=== PATIENT | male | born 1935 | race Caucasian/White ===

== ENCOUNTER 2022-10-26 14:30 | Emergency (ER) | payer OTHER ==
[~2022-10-26] VITALS: Ht 160 cm; Wt 65.8 kg
[2022-10-26 15:11] VITALS: BP_SYST 143
[2022-10-26] MEDS ORDERED: KETOROLAC TROMETHAMINE 30 MG VIAL IM ONE (18:15)
[2022-10-26] MEDS ORDERED: DICL20GE TP (18:24)
[2022-10-26] MEDS ORDERED: IBUP-1969 PO (18:24)
[2022-10-26 18:53] VITALS: BP_SYST 134
== END 2022-10-26 18:53 | disposition home or self-care (01) ==
LOC: SED 14:30
DX: S70.02XA Contusion of left hip, initial encounter (principal); Z79.899 Other long term (current) drug therapy; W01.0XXA Fall on same level from slipping, tripping and stumbling without subsequent striking against object, initial encounter; Y93.89 Activity, other specified; Y92.89 Other specified places as the place of occurrence of the external cause; Y99.8 Other external cause status
CPT/HCPCS: 99284; 72100; 73502; 73552; 96372; J1885